=== PATIENT | male | born 1980 | race Hispanic/Latino ===

== ENCOUNTER 2020-02-04 21:00 | Emergency (ER) | payer SELFPAY ==
--- NOTE | 2020-02-04 21:24 | ER ---
Nurse's Notes [facility] Name: Darin Mauricio Age: 39 yrs Sex: Male : 1980 Arrival Date: 02/04/2020 Time: 21:01 Bed 5 Private MD: Diagnosis: Cellulitis of left upper limb Presentation: 02/03 21:04 Chief complaint: Patient states: abscess on LFA x 1 week. Coronavirus screen: Proceed ca1 with normal triage. Patient denies a cough. Patient denies shortness of breath or difficulty breathing. Patient denies measured and/or subjective temperature greater than 100.4F prior to today's visit. Patient denies travel on a cruise ship or to a country the [facility] currently lists as an affected area. Patient denies contact with known and/or suspected case of COVID-19. Ebola Screen: Patient negative for fever greater than or equal to 101.5 degrees Fahrenheit, and additional compatible Ebola Virus Disease symptoms Patient denies exposure to infectious person. Patient denies travel to an Ebola-affected area in the 21 days before illness onset. No symptoms or risks identified at this time. Initial Sepsis Screen: Does the patient meet any 2 criteria? No. Patient's initial sepsis screen is negative. Does the patient have a suspected source of infection? No. Patient's initial sepsis screen is negative. Risk Assessment: Do you want to hurt yourself or someone else? Patient reports no desire to harm self or others. Onset of symptoms was February 04, 2020. 21:04 Method Of Arrival: Ambulatory ca1 21:04 Acuity: SHARMAINE 4 ca1 Historical: - Allergies: 21:07 No Known Allergies; ca1 - Home Meds: 21:07 None [Active]; ca1 - PMHx: 21:07 None; ca1 - PSHx: 21:07 None; ca1 - Immunization history:: Adult Immunizations up to date, Last tetanus immunization: < 5 years ago Flu vaccine is not up to date. - Social history:: Smoking status: Patient reports the use of cigarette tobacco products, smokes one-half pack cigarettes per day. Screenin:25 Abuse screen: Denies threats or abuse. Nutritional screening: No deficits noted. bb Tuberculosis screening: No symptoms or risk factors identified. Fall Risk None identified. Assessment: 21:25 General: Appears in no apparent distress. slender, unkempt, Behavior is calm, bb cooperative. Pain: Complains of pain in palmar aspect of left forearm. Neuro: Level of Consciousness is awake, alert, obeys commands, Oriented to person, place, time, situation. Cardiovascular: No deficits noted. Respiratory: Airway is patent Respiratory effort is even, unlabored. GI: No deficits noted. No signs and/or symptoms were reported involving the gastrointestinal system. Derm: Abscess located on palmar aspect of left forearm is quarter sized, has purulent drainage, is red. Musculoskeletal: Circulation, motion, and sensation intact. Vital Signs: 21:04 BP 106 / 84; Pulse 97; Resp 17 S; Temp 97.1(O); Pulse Ox 100% on R/A; Weight 58.97 kg ca1 (R); Height 5 ft. 9 in. (175.26 cm) (R); Pain 7/10; 21:51 BP 102 / 76; Pulse 82; Resp 16 S; Temp 97.9(O); Pulse Ox 100% on R/A; bb 21:04 Body Mass Index 19.20 (58.97 kg, 175.26 cm) ca1 ED Course: 21:01 Patient arrived in ED. ds1 21:06 Triage completed. ca1 21:07 Arm band placed on right wrist. ca1 21:08 Jose Ramon Fernández MD is Attending Physician. tw4 21:25 Patient has correct armband on for positive identification. Call light in reach. bb 21:25 No provider procedures requiring assistance completed. Patient did not have IV access bb during this emergency room visit. 22:08 Aliza Sharpe, RN is Primary Nurse. bb Administered Medications: 21:43 Drug: Motrin 800 mg Route: PO; bb 21:54 Follow up: Response: No adverse reaction bb 21:44 Drug: Cleocin 600 mg {Note: split dose right and left gluteus.} Route: IM; Site: Other; bb 21:54 Follow up: Response: No adverse reaction bb Outcome: 21:24 Discharge ordered by . tw4 21:46 Condition: stable bb 21:52 Discharged to home ambulatory. bb 21:52 Discharge instructions given to patient, Instructed on discharge instructions, follow up and referral plans. medication usage, wound care, Demonstrated understanding of instructions, follow-up care, medications, wound care, Prescriptions given X 1. 22:08 Patient left the ED. bb Signatures: Estella Esparza ds1 Aliza Sharpe RN RN bb Jose Ramon Fernández MD MD tw4 Rima Walden RN RN ca1 Corrections: (The following items were deleted from the chart) 21:08 21:04 Pulse 98bpm; Resp 17bpm; Spontaneous; Pulse Ox 100% RA; Temp 97.1F Oral; 58.97 kg ca1 Reported; Height 5 ft. 9 in. Reported; BMI: 19.2; Pain 7/10; ca1
--- NOTE | 2020-02-04 21:24 | EDPHYS ---
Physician Documentation [facility] Name: Darin Mauricio Age: 39 yrs Sex: Male : 1980 Arrival Date: 02/04/2020 Time: 21:01 Bed 5 Private MD: ED Physician Jose Ramon Fernández HPI: 02/04 00:01 This 39 yrs old Male presents to ER via Ambulatory with complaints of Abscess. tw4 00:01 The patient presents with cellulitis of the palmar aspect of left forearm. Description: tw4 The affected area is small, localized, draining, erythematous. Onset: The symptoms/episode began/occurred 5 day(s) ago. Possible cause(s): insect sting. Associated signs and symptoms: The patient has no apparent associated signs or symptoms. Modifying factors: the symptoms are alleviated by nothing, the symptoms are aggravated by nothing. Severity of symptoms: At their worst the symptoms were mild, in the emergency department the symptoms are unchanged. The patient has not experienced similar symptoms in the past. Historical: - Allergies: 02/03 21:07 No Known Allergies; ca1 - Home Meds: 21:07 None [Active]; ca1 - PMHx: 21:07 None; ca1 - PSHx: 21:07 None; ca1 - Immunization history:: Adult Immunizations up to date, Last tetanus immunization: < 5 years ago Flu vaccine is not up to date. - Social history:: Smoking status: Patient reports the use of cigarette tobacco products, smokes one-half pack cigarettes per day. ROS: 02/04 00:01 Constitutional: Negative for fever, chills, and weight loss, ENT: Negative for injury, tw4 pain, and discharge, Cardiovascular: Negative for chest pain, palpitations, and edema, Respiratory: Negative for shortness of breath, cough, wheezing, and pleuritic chest pain, Abdomen/GI: Negative for abdominal pain, nausea, vomiting, diarrhea, and constipation. Skin: Positive for abscess, cellulitis, erythema, lesions, puncture, Negative for diaphoresis, discoloration. Exam: 00:01 Constitutional: This is a well developed, well nourished patient who is awake, alert, tw4 and in no acute distress. Head/Face: Normocephalic, atraumatic. Chest/axilla: Normal chest wall appearance and motion. Nontender with no deformity. No lesions are appreciated. Cardiovascular: Regular rate and rhythm with a normal S1 and S2. No gallops, murmurs, or rubs. Normal PMI, no JVD. No pulse deficits. Respiratory: Lungs have equal breath sounds bilaterally, clear to auscultation and percussion. No rales, rhonchi or wheezes noted. No increased work of breathing, no retractions or nasal flaring. Abdomen/GI: Soft, non-tender, with normal bowel sounds. No distension or tympany. No guarding or rebound. No evidence of tenderness throughout. Back: No spinal tenderness. No costovertebral tenderness. Full range of motion. 00:01 Skin: abscess, that is small, approximately 3 cm(s), with drainage, that is purulent, that is serosanguinous, cellulitis, that is mild, well demarcated, on the palmar aspect of left forearm. Vital Signs: 02/03 21:04 BP 106 / 84; Pulse 97; Resp 17 S; Temp 97.1(O); Pulse Ox 100% on R/A; Weight 58.97 kg ca1 (R); Height 5 ft. 9 in. (175.26 cm) (R); Pain 7/10; 21:51 BP 102 / 76; Pulse 82; Resp 16 S; Temp 97.9(O); Pulse Ox 100% on R/A; bb 21:04 Body Mass Index 19.20 (58.97 kg, 175.26 cm) ca1 MDM: 21:12 Patient medically screened. tw4 02/04 00:01 Differential diagnosis: abscess, cellulitis, insect bite. Data reviewed: vital signs, tw4 nurses notes. Data interpreted: Pulse oximetry: Interpretation: normal. Counseling: I had a detailed discussion with the patient and/or guardian regarding: the historical points, exam findings, and any diagnostic results supporting the discharge/admit diagnosis. Special discussion: I discussed with the patient/guardian in detail that at this point there is no indication for admission to the hospital. It is understood, however, that if the symptoms persist or worsen the patient needs to return immediately for re-evaluation. Administered Medications: 02/03 21:43 Drug: Motrin 800 mg Route: PO; bb 21:54 Follow up: Response: No adverse reaction bb 21:44 Drug: Cleocin 600 mg {Note: split dose right and left gluteus.} Route: IM; Site: Other; bb 21:54 Follow up: Response: No adverse reaction bb Disposition: 02/04/20 21:24 Discharged to Home. Impression: Cellulitis of left upper limb. - Condition is Stable. - Discharge Instructions: Cellulitis, Adult. - Prescriptions for Cleocin 300 mg Oral Capsule - take 1 capsule by ORAL route every 6 hours for 10 days; 40 capsule. - Medication Reconciliation Form, Thank You Letter, Antibiotic Education, Prescription Opioid Use form. - Follow up: Private Physician; When: Upon discharge from the Emergency Department; Reason: Recheck today's complaints, Continuance of care, Re-evaluation by your physician. - Problem is new. - Symptoms have improved. Signatures: Aliza Sharpe RN RN Jose Ramon Castellon MD MD tw4 Rima Walden RN RN ca1 Corrections: (The following items were deleted from the chart) 22:08 21:24 02/04/2020 21:24 Discharged to Home. Impression: Cellulitis of left upper limb. bb Condition is Stable. Forms are Medication Reconciliation Form, Thank You Letter, Antibiotic Education, Prescription Opioid Use. Follow up: Private Physician; When: Upon discharge from the Emergency Department; Reason: Recheck today's complaints, Continuance of care, Re-evaluation by your physician. Problem is new. Symptoms have improved. tw4
[2020-02-04] MEDS ORDERED: CLINDAMYCIN IV 150 MG/ML (4 mL) VIAL ONE (21:39)
[2020-02-04] MEDS ORDERED: IBUPROFEN 400 MG TAB ONE (21:39)
[2020-02-04 22:15] VITALS: O2SAT 100
[2020-02-04 22:16] VITALS: BP 102/76; TEMP 97.9
== END 2020-02-04 22:08 | disposition home or self-care (01) ==
LOC: ER 21:00
DX: L03.114 Cellulitis of left upper limb (principal); F17.210 Nicotine dependence, cigarettes, uncomplicated
CPT/HCPCS: 96372; 99283; S0077

== ENCOUNTER 2022-08-23 03:20 | Emergency (ER) | payer SELFPAY ==
--- OUTSIDE RECORDS SUMMARY | 2022-08-23 03:23 | XMS REPORT | Continuity of Care Document ---
:1980 Author Organization [facility] t Address [address] [place] [address] [place] [id number] Care Team Providers Name Role Phone Unavailable Unavailable Unavailable Problems This patient has no known problems. Allergies, Adverse Reactions, Alerts This patient has no known allergies or adverse reactions. Medications This patient has no known medications. Procedures This patient has no known procedures. Results This patient has no known results.
[2022-08-23] MEDS ORDERED: LIDOCAINE 1% MPF 30 ML VIAL ONE (04:02)
[2022-08-23] MEDS ORDERED: MORPHINE 4 MG/ML SYR ONE (04:02)
--- NOTE | 2022-08-23 04:49 | EDPHYS ---
Physician Documentation [facility] Name: Darin Mauricio Age: 42 yrs Sex: Male : 1980 Arrival Date: 08/23/2022 Time: 03:22 Bed 20 Private MD: ED Physician Celso Moya HPI: 08/23 04:43 This 42 yrs old Male presents to ER via Ambulatory with complaints of Abscess. bs3 04:43 The patient presents with an abscess of the buttocks, the patient presents with a bs3 swollen area of the buttocks. Description: fluctuant, raised, swollen, tense. Onset: The symptoms/episode began/occurred gradually, 7 day(s) ago. Associated signs and symptoms: The patient has no apparent associated signs or symptoms. Modifying factors: the symptoms are alleviated by nothing, the symptoms are aggravated by pressure. Severity of symptoms: At their worst the symptoms were moderate. The patient has experienced similar episodes in the past. pt with left gluteal abscess, hx of multiple abscess in the past, denies ivdu, immuncompromised state or anything else, tried to wait days with soaks but it didn't help. Historical: - Allergies: 03:32 No Known Allergies; bb - Home Meds: 03:32 None [Active]; bb - PMHx: 03:32 None; bb - PSHx: 03:32 None; bb - Immunization history:: Client reports having NOT received the Covid vaccine. - Social history:: Smoking status: Patient reports the use of cigarette tobacco products. ROS: 04:43 Constitutional: Negative for fever, chills bs3 04:43 All other systems are negative. Exam: 04:43 Constitutional: This is a well developed, well nourished patient who is awake, alert, bs3 and in no acute distress. Head/Face: Normocephalic, atraumatic. Eyes: Pupils equal round and reactive to light, extra-ocular motions intact. Lids and lashes normal. ENT: mmm, no posterior phyarngeal erythema Neck: Trachea midline, no thyromegaly, no neck stiffness Chest/axilla: Normal chest wall appearance and motion. Nontender with no deformity. No lesions are appreciated. Cardiovascular: Regular rate and rhythm with a normal S1 and S2. symmetric pulses in upper extremities Respiratory: Lungs have equal breath sounds bilaterally, clear to auscultation, no respiratory distress Abdomen/GI: Soft, non-tender, no rebound or guarding Male : on his left gluteal region he has a large 10cm x 10cm area of induration with fluctuance in the middle, he has mild skin breakdown at the center, it is tender and red Vital Signs: 03:31 Weight 58.97 kg (R); Height 5 ft. 9 in. (175.26 cm) (R); Pain 10/10; bb 03:33 BP 115 / 89; Pulse 110; Resp 20; Temp 98.5; Pulse Ox 100% on R/A; ha1 04:30 BP 112 / 80; Pulse 90; Resp 16; Pulse Ox 99% on R/A; ha1 03:31 Body Mass Index 19.20 (58.97 kg, 175.26 cm) bb Procedures: 04:43 I \T\ D: Incision and drainage was performed for an abscess of the left Prepped with bs3 Betadine, Anesthetized with 10 ml's 1% Lidocaine. Incised with #10 blade. Drained large amount purulent fluid. bloody fluid. Loculations removed. Abscess cavity explored. Packed with iodoform gauze, with loop drain made from packing. Dressing: sterile 4x4 gauze, the patient tolerated the procedure well. MDM: 03:30 Patient medically screened. bs3 04:46 Data reviewed: vital signs, nurses notes. ED course: pt with large abscess, will drain bs3 and start antibiotics, . 08/23 03:45 Order name: Incision \T\ Drainage Setup; Complete Time: 04:29 bs3 Administered Medications: 03:49 CANCELLED (Other Intervention Used): morphine 4 mg IVP once over 4 mins bb 04:15 Drug: Lidocaine (1 %) 8 mg {Note: administered by in shift during procedure.} ha1 Volume: 20 ml; Route: Infiltration; 05:00 Follow up: Response: No adverse reaction ha1 04:15 Drug: morphine 4 mg {Note: given IV.} Route: IM; Site: Other; ha1 04:30 Follow up: Response: No adverse reaction; Pain is decreased; RASS: Alert and Calm (0) ha1 Disposition Summary: 08/23/22 04:48 Discharge Ordered Location: Home bs3 Problem: new bs3 Symptoms: have improved bs3 Condition: Stable bs3 Diagnosis - Cutaneous abscess, unspecified bs3 Followup: bs3 - With: Private Physician - When: 5 - 6 days - Reason: Recheck today's complaints Discharge Instructions: - Discharge Summary Sheet bs3 - Skin Abscess bs3 - Incision and Drainage bs3 - Percutaneous Abscess Drain Placement bs3 Forms: - Medication Reconciliation Form bs3 - Thank You Letter bs3 - Antibiotic Education bs3 - Prescription Opioid Use bs3 Prescriptions: - Clindamycin HCl 300 mg Oral Capsule - take 1 capsule by ORAL route every 6 hours for 10 days; 40 capsule; Refills: 0, bs3 Product Selection Permitted Signatures: Aliza Sharpe RN RN bb Nina Cruz RN RN ha1 Celso Moya MD MD bs3 Corrections: (The following items were deleted from the chart) 03:49 03:45 morphine 4 mg IVP once over 4 mins ordered. bs3 bb 04:47 04:43 Severity of symptoms: At their worst the symptoms were moderate, bs3 bs3 04:47 04:43 pt with right gluteal abscess, hx of multiple abscess in the past, denies ivdu, bs3 immuncompromised state or anything else, tried to wait days with soaks but it didn't help. bs3
--- NOTE | 2022-08-23 04:49 | ER ---
Nurse's Notes [facility] Name: Darin Mauricio Age: 42 yrs Sex: Male : 1980 Arrival Date: 08/23/2022 Time: 03:22 Bed 20 Private MD: Diagnosis: Cutaneous abscess, unspecified Presentation: 08/23 03:31 Chief complaint: Patient states: he has an abscess on his left buttock x 1 week pain is bb 10/10. Coronavirus screen: At this time, the client does not indicate any symptoms associated with coronavirus-19. Ebola Screen: No symptoms or risks identified at this time. Initial Sepsis Screen: Does the patient meet any 2 criteria? No. Patient's initial sepsis screen is negative. Does the patient have a suspected source of infection? No. Patient's initial sepsis screen is negative. Risk Assessment: Do you want to hurt yourself or someone else? Patient reports no desire to harm self or others. Onset of symptoms was August 17, 2022. 03:31 Method Of Arrival: Ambulatory bb 03:31 Acuity: SHARMAINE 4 bb Historical: - Allergies: 03:32 No Known Allergies; bb - Home Meds: 03:32 None [Active]; bb - PMHx: 03:32 None; bb - PSHx: 03:32 None; bb - Immunization history:: Client reports having NOT received the Covid vaccine. - Social history:: Smoking status: Patient reports the use of cigarette tobacco products. Screenin:36 Abuse screen: Denies threats or abuse. Denies injuries from another. Nutritional ha1 screening: No deficits noted. Tuberculosis screening: No symptoms or risk factors identified. Fall Risk None identified. Assessment: 03:34 General: Appears uncomfortable, Behavior is cooperative. Pain: Complains of pain in ha1 left leg. Neuro: Level of Consciousness is awake, alert, obeys commands, Oriented to person, place, time, situation. Cardiovascular: Patient's skin is warm and dry. Rhythm is sinus tachycardia. Respiratory: Airway is patent Trachea midline Respiratory effort is even, unlabored, Respiratory pattern is regular, symmetrical. GI: Abdomen is flat, non-distended, Bowel sounds present X 4 quads. : : No signs and/or symptoms were reported regarding the genitourinary system. Musculoskeletal: Range of motion: intact in all extremities. 04:30 Reassessment: Patient and/or family updated on plan of care and expected duration. Pain ha1 level reassessed. Patient is alert, oriented x 3, equal unlabored respirations, skin warm/dry/pink. having abscess drainage/removal by in shift. 05:10 Reassessment: Patient and/or family updated on plan of care and expected duration. Pain ha1 level reassessed. Patient is alert, oriented x 3, equal unlabored respirations, skin warm/dry/pink. Patient states feeling better. Patient states symptoms have improved. Vital Signs: 03:31 Weight 58.97 kg (R); Height 5 ft. 9 in. (175.26 cm) (R); Pain 10/10; bb 03:33 BP 115 / 89; Pulse 110; Resp 20; Temp 98.5; Pulse Ox 100% on R/A; ha1 04:30 BP 112 / 80; Pulse 90; Resp 16; Pulse Ox 99% on R/A; ha1 03:31 Body Mass Index 19.20 (58.97 kg, 175.26 cm) bb ED Course: 03:22 Patient arrived in ED. ag3 03:24 Patient has correct armband on for positive identification. Placed in gown. Bed in low ha1 position. Call light in reach. Side rails up X 1. 03:28 Nina Cruz, AB is Primary Nurse. ha1 03:30 Celso Moya MD is Attending Physician. bs3 03:30 No provider procedures requiring assistance completed. Inserted saline lock: 20 gauge ha1 in right antecubital area, using aseptic technique. Accessed. 03:32 Triage completed. bb 03:32 Arm band placed on Patient placed in an exam room, on a stretcher, on pulse oximetry. bb Family accompanied patient. 05:04 Dressings: 4X4s X 2; left side of buttom no drainage at the side. ha1 05:11 IV discontinued, intact, bleeding controlled, No redness/swelling at site. Pressure ha1 dressing applied. Administered Medications: 03:49 CANCELLED (Other Intervention Used): morphine 4 mg IVP once over 4 mins bb 04:15 Drug: Lidocaine (1 %) 8 mg {Note: administered by in shift during procedure.} ha1 Volume: 20 ml; Route: Infiltration; 05:00 Follow up: Response: No adverse reaction ha1 04:15 Drug: morphine 4 mg {Note: given IV.} Route: IM; Site: Other; ha1 04:30 Follow up: Response: No adverse reaction; Pain is decreased; RASS: Alert and Calm (0) ha1 Medication: 05:13 VIS not applicable for this client. ha1 Outcome: 04:48 Discharge ordered by . bs3 05:12 Discharged to home ambulatory, with family. ha1 05:12 Condition: stable 05:12 Discharge instructions given to patient, family, Instructed on discharge instructions, follow up and referral plans. medication usage, Demonstrated understanding of instructions, follow-up care, medications, Prescriptions given X 1. 05:13 Patient left the ED. 1 Signatures: Aliza Sharpe RN Abigail Bardales Nina Richard RN RN ha1 Celso Moya MD MD bs3
[2022-08-23 05:32] VITALS: BP 115/89; TEMP 98.5; O2SAT 100
== END 2022-08-23 05:13 | disposition home or self-care (01) ==
LOC: ER 03:20
PROC: 0H98XZZ Drainage of Buttock Skin, External Approach (ICD-10-PCS; principal; 2022-08-23)
DX: L02.31 Cutaneous abscess of buttock (principal)
CPT/HCPCS: 96372; 99285